=== PATIENT | female | born 1940 | race Native Hawaiian/Other Pacific Islander ===

== ENCOUNTER 2021-11-08 11:28 | Outpatient (CLI) | payer OTHER, MEDICARE ==
[2021-11-08 12:14] LABS: POTASSIUM 4.4 mmol/L (3.6-5.2)
== END 2021-11-08 19:15 | disposition home or self-care (01) ==
LOC: LABW 11:28
PROVIDERS: ATTEND Student in an Organized Health Care Education/Training Program
DX: I12.9 Hypertensive chronic kidney disease with stage 1 through stage 4 chronic kidney disease, or unspecified chronic kidney disease (principal); N18.32 Chronic kidney disease, stage 3b; D63.1 Anemia in chronic kidney disease; R80.8 Other proteinuria; N25.81 Secondary hyperparathyroidism of renal origin; E87.6 Hypokalemia
CPT/HCPCS: 36415; 80053; 81000; 82306; 82570; 83970; 84155; 85018

== ENCOUNTER 2022-01-21 14:16 | Outpatient (CLI) | payer OTHER, MEDICARE ==
[2022-01-21 16:04] LABS: POTASSIUM 3.5 mmol/L (3.6-5.2)
== END 2022-01-21 18:58 | disposition home or self-care (01) ==
LOC: LABW 14:16
PROVIDERS: ATTEND Student in an Organized Health Care Education/Training Program
DX: I12.9 Hypertensive chronic kidney disease with stage 1 through stage 4 chronic kidney disease, or unspecified chronic kidney disease (principal); N18.32 Chronic kidney disease, stage 3b; D63.1 Anemia in chronic kidney disease; R80.8 Other proteinuria; N25.81 Secondary hyperparathyroidism of renal origin; E87.6 Hypokalemia; E79.0 Hyperuricemia without signs of inflammatory arthritis and tophaceous disease; E55.9 Vitamin D deficiency, unspecified
CPT/HCPCS: 36415; 80053; 81000; 82306; 82570; 83735; 83970; 84100; 84156; 84550; 85018

== ENCOUNTER 2022-03-07 09:19 | Outpatient (CLI) | payer OTHER, MEDICARE | END 2022-03-07 18:58 | disposition home or self-care (01) | LOC: US 09:19 | PROVIDERS: ATTEND Student in an Organized Health Care Education/Training Program | DX: N18.32 Chronic kidney disease, stage 3b (principal) ==

== ENCOUNTER 2022-06-03 11:20 | Outpatient (CLI) | payer OTHER, MEDICARE ==
[2022-06-03 12:21] LABS: POTASSIUM 4.1 mmol/L (3.6-5.2)
== END 2022-06-03 19:12 | disposition home or self-care (01) ==
LOC: LABW 11:20
PROVIDERS: ATTEND Student in an Organized Health Care Education/Training Program
DX: I12.9 Hypertensive chronic kidney disease with stage 1 through stage 4 chronic kidney disease, or unspecified chronic kidney disease (principal); N18.32 Chronic kidney disease, stage 3b; D63.1 Anemia in chronic kidney disease; R80.8 Other proteinuria; N25.81 Secondary hyperparathyroidism of renal origin; E87.6 Hypokalemia; E79.0 Hyperuricemia without signs of inflammatory arthritis and tophaceous disease; E55.9 Vitamin D deficiency, unspecified
CPT/HCPCS: 36415; 80053; 81002; 82306; 82570; 83735; 83970; 84100; 84156; 84550; 85018

== ENCOUNTER 2022-10-07 10:19 | Outpatient (CLI) | payer OTHER, MEDICARE ==
[2022-10-07 11:05] LABS: PLATELET COUNT 179 K/uL (152-353)
[2022-10-07 11:08] LABS: POTASSIUM 4.1 mmol/L (3.6-5.2)
== END 2022-10-07 19:11 | disposition home or self-care (01) ==
LOC: LABW 10:19
PROVIDERS: ATTEND Student in an Organized Health Care Education/Training Program
DX: I12.9 Hypertensive chronic kidney disease with stage 1 through stage 4 chronic kidney disease, or unspecified chronic kidney disease (principal); N18.32 Chronic kidney disease, stage 3b; D63.1 Anemia in chronic kidney disease; R80.8 Other proteinuria; N25.81 Secondary hyperparathyroidism of renal origin; E87.6 Hypokalemia; E79.0 Hyperuricemia without signs of inflammatory arthritis and tophaceous disease; E55.9 Vitamin D deficiency, unspecified
CPT/HCPCS: 36415; 80053; 81002; 82306; 82570; 83735; 83970; 84100; 84156; 84550; 85027

== ENCOUNTER 2023-06-05 08:11 | Outpatient (CLI) | payer OTHER, MEDICARE ==
[2023-06-05 08:32] LABS: PLATELET COUNT 207 K/uL (152-353)
[2023-06-05 08:45] LABS: POTASSIUM 4.1 mmol/L (3.6-5.2)
== END 2023-06-05 19:02 | disposition home or self-care (01) ==
LOC: LABW 08:11
PROVIDERS: ATTEND Student in an Organized Health Care Education/Training Program
DX: I12.9 Hypertensive chronic kidney disease with stage 1 through stage 4 chronic kidney disease, or unspecified chronic kidney disease (principal); N18.32 Chronic kidney disease, stage 3b; D63.1 Anemia in chronic kidney disease; R80.8 Other proteinuria; E87.6 Hypokalemia; E79.0 Hyperuricemia without signs of inflammatory arthritis and tophaceous disease; E55.9 Vitamin D deficiency, unspecified; E78.2 Mixed hyperlipidemia; R94.6 Abnormal results of thyroid function studies; D50.8 Other iron deficiency anemias
CPT/HCPCS: 36415; 80053; 81002; 82306; 82570; 83735; 83970; 84100; 84156; 84550; 85027